=== PATIENT | female | born 1950 ===

== ENCOUNTER 2018-04-08 11:55 | Emergency (ER) | payer OTHER ==
[~2018-04-08] VITALS: Ht 157.5 cm; Wt 86.2 kg
[2018-04-08] MEDS ORDERED: DIOVAN320 MG (12:20)
[2018-04-08] MEDS ORDERED: ALLEGRA ALLERGY60 MG (12:21)
[2018-04-08] MEDS ORDERED: TOPROL XL50 M1 (12:21)
[2018-04-08] MEDS ORDERED: VITAMIN C125 MG (12:21)
[2018-04-08] MEDS ORDERED: SIMVASTATIN10 MG (12:21)
[2018-04-08] MEDS ORDERED: ASPIR 8181 MG (12:22)
== END 2018-04-08 21:10 | disposition home or self-care (01) ==
LOC: ER 11:55
DX: K52.9 Noninfective gastroenteritis and colitis, unspecified (principal); J06.9 Acute upper respiratory infection, unspecified

== ENCOUNTER 2018-10-17 13:18 | Outpatient (CLI) | payer OTHER ==
[~2018-10-17 13:18] MED LIST: ALLEGRA ALLERGY60 MG; ASPIR 8181 MG; DIOVAN320 MG; SIMVASTATIN10 MG; TOPROL XL50 M1; VITAMIN C125 MG
== END 2018-10-17 13:29 | disposition home or self-care (01) ==
LOC: MAMO-SONO 13:18
DX: Z12.31 Encounter for screening mammogram for malignant neoplasm of breast (principal); Z87.898 Personal history of other specified conditions; N64.89 Other specified disorders of breast

== ENCOUNTER → 2021-10-16 | Outpatient (CLI) | payer OTHER | END | disposition home or self-care (01) | LOC: MAMO-SONO 11:05 | DX: N64.59 Other signs and symptoms in breast (principal); Z12.31 Encounter for screening mammogram for malignant neoplasm of breast ==

== ENCOUNTER 2023-01-08 09:13 | Outpatient (CLI) | payer OTHER | END 2023-01-08 10:47 | disposition home or self-care (01) | LOC: MAMO-SONO 09:13 → MAMO 607 09:13 → MAMO-SONO 10:47 | DX: Z12.31 Encounter for screening mammogram for malignant neoplasm of breast (principal) ==

== ENCOUNTER 2024-07-03 10:12 | Outpatient (CLI) | payer OTHER | END 2024-07-03 10:26 | disposition home or self-care (01) | LOC: MAMO-SONO 10:12 | PROVIDERS: ATTEND Surgery | DX: N60.11 Diffuse cystic mastopathy of right breast (principal); N60.12 Diffuse cystic mastopathy of left breast ==

== ENCOUNTER → 2024-12-04 | Outpatient (CLI) | payer OTHER | END | disposition home or self-care (01) | LOC: SONOGRAMA 09:19 | PROVIDERS: ATTEND Surgery | DX: N60.11 Diffuse cystic mastopathy of right breast (principal); N60.12 Diffuse cystic mastopathy of left breast ==